=== PATIENT | female | born 2000 | race Caucasian/White ===

== ENCOUNTER 2022-07-27 17:35 | Emergency (ER) | payer OTHER ==
[~2022-07-27] VITALS: Ht 152.4 cm; Wt 52.8 kg
[2022-07-27 17:50] VITALS: BP 104/67
--- NOTE | 2022-07-27 18:04 | NUR ---
SWABS FOR FAINA, INFLUENZA A&B SENT TO LAB
--- NOTE | 2022-07-27 18:05 | NUR ---
James deal in [facility] - 07/27/22 at 1806 by [email or web address] CH B
--- NOTE | 2022-07-27 18:09 | NUR ---
PT AMB TO BED 3.
[2022-07-27] MEDS ORDERED: ALBUTEROL SULFATE/IPRATROPIU 3 ML SOL IH ONE (18:30)
[2022-07-27] MEDS ORDERED: predniSONE 20 MG TAB PO ONE (18:30)
--- NOTE | 2022-07-27 18:36 | NUR ---
22 y/o female bib self, c/o sob, difficulty breathing, yeager, sore throat, subjective fever, chills, body aches for 3 days, also reports consistent cough for 2 weeks. a&ox4, ambulates with steady gait. lung sounds wheezing bl. heart sounds regular and even. denies n/v/d. pmh: asthma nka med: denies
[2022-07-27] MEDS ORDERED: ALBU0.0912 IH (19:47)
[2022-07-27] MEDS ORDERED: PRED20TA5 PO (19:47)
--- NOTE | 2022-07-27 20:18 | NUR ---
pt cleared for discharge. left without paperwork.
== END 2022-07-27 20:18 | disposition home or self-care (01) ==
LOC: MED 17:43
DX: J11.1 Influenza due to unidentified influenza virus with other respiratory manifestations (principal); Z20.822 Contact with and (suspected) exposure to COVID-19; J45.901 Unspecified asthma with (acute) exacerbation; F17.210 Nicotine dependence, cigarettes, uncomplicated; F12.90 Cannabis use, unspecified, uncomplicated; Z79.899 Other long term (current) drug therapy
CPT/HCPCS: 71045; 87426; 87804; 94640; 99284; J7512; Q0092

== ENCOUNTER 2022-10-28 05:10 | Emergency (ER) | payer OTHER, MEDICAID ==
[~2022-10-28] VITALS: Ht 152.4 cm; Wt 54.4 kg
[~2022-10-28 05:10] MED LIST: ALBU0.0912 IH; PRED20TA5 PO
[2022-10-28 05:15] VITALS: BP 129/60
--- NOTE | 2022-10-28 05:17 | NUR ---
TO BED AMBULATORY
[2022-10-28] MEDS ORDERED: ACETAMINOPHEN EXTRA STRENGTH 500 MG TAB PO ONE (05:35)
[2022-10-28] MEDS ORDERED: ONDANSETRON 4 MG ODT PO ONE (05:40)
--- NOTE | 2022-10-28 05:42 | NUR ---
22YR OLD FEMALE BIB SELF C/O R RIB PAIN CELLULITIS TO R THIGH AND MOUTH. RIB PAIN X1DAY DENIES ANY INJURY. 8/10 SHARP PAIN LEVEL. DENIES CP OR SOB. PT STATES CELLULITIS X3DAYS. HAS HX OF CELLULITIS. SMALL OPEN SORES ON R THIGH AND UPPER LIP . HOB ELEVATED. BED AT LOWEST POSITION. NKDA ASTHMA
--- NOTE | 2022-10-28 05:52 | NUR ---
LABS COLLECTED AND SENT TO LAB
[2022-10-28 05:56] LABS: BASOPHILS # (AUTO) 0.1 K/uL (0.00-0.22); BASOPHILS % (AUTO) 1.1 % (0.0-2.0); EOSINOPHILS # (AUTO) 0.2 K/uL (0-0.4); EOSINOPHILS % (AUTO) 1.5 % (0.0-4.0); HEMATOCRIT 38.3 % (36-48); HEMOGLOBIN 12.9 g/dL (12.0-16.0); LYMPHOCYTES # (AUTO) 2.3 K/uL (2.5-16.5); LYMPHOCYTES % (AUTO) 21.2 % (20.5-51.1); MEAN CORPUSCULAR HEMOGLOBIN 29 pg (27-31); MEAN CORPUSCULAR HGB CONC 34 g/dL (33-37); MEAN CORPUSCULAR VOLUME 86.5 fL (80-94); MONOCYTES # (AUTO) 1.1 K/uL (0.8-1.0); MONOCYTES % (AUTO) 9.6 % (1.7-9.3); NEUTROPHILS # (AUTO) 7.4 K/uL (1.8-7.7); NEUTROPHILS % (AUTO) 66.6 % (42.2-75.2); PLATELET COUNT (AUTO) 421 K/uL (140-450); RED BLOOD CELL COUNT(AUTO) 4.42 MIL/uL (4.20-5.40); RED CELL DISTRIBUTION WIDTH 14.3 % (11.6-13.7); WHITE BLOOD COUNT (AUTO) 11.1 K/uL (4.5-11.0)
[2022-10-28 06:22] LABS: ALBUMIN 3.9 g/dL (3.4-5.0); ANION GAP 12.8 (8-16); CARBON DIOXIDE 27.1 mmol/L (21-32); CREATININE 0.9 mg/dL (0.6-1.3); POTASSIUM 3.9 mmol/L (3.5-5.1); TOTAL BILIRUBIN 0.8 mg/dL (0.0-1.0)
--- NOTE | 2022-10-28 07:30 | NUR ---
REPORT RECEIVED FROM DALIA TRAN. ASSUMED CARE AT THIS TIME
--- NOTE | 2022-10-28 08:09 | NUR ---
MADE AWARE OF PT UA/PREG
[2022-10-28 08:15] LABS: APPEARANCE,URINE CLEAR (CLEAR); BILIRUBIN,URINE NEGATIVE (NEGATIVE); BLOOD, URINE NEGATIVE (NEGATIVE); COLOR,URINE YELLOW (YELLOW); LEUKOCYTE ESTERASE ,URINE SMALL (NEGATIVE); NITRITE, URINE NEGATIVE (NEGATIVE); PH,URINE 6.5 (5.0-9.0); UGLUCOSE NEGATIVE (NEGATIVE)
--- NOTE | 2022-10-28 08:22 | NUR ---
US AT BEDSIDE
[2022-10-28 08:42] LABS: RBC,URINE 0-5 /HPF (0-5)
--- NOTE | 2022-10-28 11:49 | NUR ---
CALL RECEIVED FROM [facility]. UPDATED ON PT STATUS JOHNNY VICTORIA [phone]
[2022-10-28] MEDS ORDERED: ACET-10509 PO (13:59)
[2022-10-28] MEDS ORDERED: CEPH-588 PO (13:59)
[2022-10-28 14:18] VITALS: BP 112/63
--- NOTE | 2022-10-28 14:18 | NUR ---
Patient discharged with v/s stable. Written and verbal after care instructions FOR UTI AND FIRST TRIMESTER PREG given and explained. Patient alert, oriented and verbalized understanding of instructions. Ambulatory with steady gait. All questions addressed prior to discharge. ID band removed. Patient advised to follow up with PMD. Rx of KEFLEX AND TYLENOL XTRA STRENGTH given. Opportunity to ask questions provided and answered.
--- NOTE | 2022-10-28 14:19 | NUR ---
The patient's care was reviewed and supervised by Lupe Galvez RN.
== END 2022-10-28 14:18 | disposition home or self-care (01) ==
LOC: MED 05:10
DX: O23.41 Unspecified infection of urinary tract in pregnancy, first trimester (principal); N39.0 Urinary tract infection, site not specified; R07.89 Other chest pain; J45.909 Unspecified asthma, uncomplicated; Z3A.01 Less than 8 weeks gestation of pregnancy
CPT/HCPCS: 36415; 71045; 76705; 76817; 80053; 81001; 81025; 83690; 84702; 85025; 85379; 87086; 99285; Q0092; Q0162

== ENCOUNTER 2022-12-03 20:53 | Emergency (ER) | payer OTHER, MEDICAID ==
[~2022-12-03] VITALS: Ht 165.1 cm; Wt 62.6 kg
[~2022-12-03 20:53] MED LIST changes: +ACET-10509 PO; +CEPH-588 PO
[2022-12-03 21:10] VITALS: BP 106/50
--- NOTE | 2022-12-03 21:19 | NUR ---
Patient taken to bed 12.
--- NOTE | 2022-12-03 21:21 | NUR ---
Dr. Santos examining patient.
--- NOTE | 2022-12-03 21:38 | NUR ---
Ultrasound at bedside.
[2022-12-03 21:46] LABS: BASOPHILS # (AUTO) 0.1 K/uL (0.00-0.22); BASOPHILS % (AUTO) 0.6 % (0.0-2.0); EOSINOPHILS # (AUTO) 0.3 K/uL (0-0.4); EOSINOPHILS % (AUTO) 2.6 % (0.0-4.0); HEMOGLOBIN 11.5 g/dL (12.0-16.0); LYMPHOCYTES # (AUTO) 3.2 K/uL (2.5-16.5); LYMPHOCYTES % (AUTO) 31.5 % (20.5-51.1); MEAN CORPUSCULAR HEMOGLOBIN 29 pg (27-31); MEAN CORPUSCULAR HGB CONC 33 g/dL (33-37); MEAN CORPUSCULAR VOLUME 88.1 fL (80-94); MONOCYTES # (AUTO) 1.1 K/uL (0.8-1.0); MONOCYTES % (AUTO) 10.5 % (1.7-9.3); NEUTROPHILS # (AUTO) 5.6 K/uL (1.8-7.7); NEUTROPHILS % (AUTO) 54.8 % (42.2-75.2); PLATELET COUNT (AUTO) 312 K/uL (140-450); RED BLOOD CELL COUNT(AUTO) 3.97 MIL/uL (4.20-5.40); RED CELL DISTRIBUTION WIDTH 14.9 % (11.6-13.7); WHITE BLOOD COUNT (AUTO) 10.2 K/uL (4.5-11.0)
--- NOTE | 2022-12-03 21:48 | NUR ---
Patient received on bed lying comfortably and awake. Alert and oriented x4. No acute distress. Complained of headache with pain scale of 3/10. Respirations even and unlabored.
[2022-12-03 21:55] LABS: APPEARANCE,URINE CLEAR (CLEAR); BILIRUBIN,URINE NEGATIVE (NEGATIVE); BLOOD, URINE NEGATIVE (NEGATIVE); COLOR,URINE YELLOW (YELLOW); LEUKOCYTE ESTERASE ,URINE NEGATIVE (NEGATIVE); NITRITE, URINE NEGATIVE (NEGATIVE); UGLUCOSE NEGATIVE (NEGATIVE)
[2022-12-03 22:12] LABS: ALBUMIN 3.4 g/dL (3.4-5.0); ANION GAP 11.9 (8-16); CARBON DIOXIDE 26.3 mmol/L (21-32); CREATININE 0.6 mg/dL (0.6-1.3); POTASSIUM 4.2 mmol/L (3.5-5.1); TOTAL BILIRUBIN 0.2 mg/dL (0.0-1.0)
[2022-12-03 23:07] LABS: RBC,URINE 0-5 /HPF (0-5); WBC,URINE 0-5 /HPF (0-5)
[2022-12-03 23:10] VITALS: BP 106/50
--- NOTE | 2022-12-03 23:12 | NUR ---
DC BY . Patient discharged with v/s stable. Written and verbal after care instructions given and explained. Patient verbalized understanding. Ambulatory with steady gait. All questions addressed prior to discharge. Advised to follow up with PMD.
== END 2022-12-03 23:12 | disposition home or self-care (01) ==
LOC: MED 20:53
DX: O26.891 Other specified pregnancy related conditions, first trimester (principal); Z3A.09 9 weeks gestation of pregnancy; Z79.899 Other long term (current) drug therapy
CPT/HCPCS: 36415; 76801; 80053; 81001; 81025; 84702; 85025; 86900; 86901; 99284; Q0092

== ENCOUNTER 2023-06-06 09:13 | Emergency (ER) | payer OTHER, MEDICAID ==
[~2023-06-06] VITALS: Ht 165.1 cm; Wt 59.1 kg
[2023-06-06 09:20] VITALS: BP 130/78; PULSE 107; RESP 20; TEMP 97.9; O2SAT 98
[2023-06-06 09:45] VITALS: O2SAT 98
[2023-06-06] MEDS ORDERED: NITR100C7 PO (09:47)
[2023-06-06] MEDS ORDERED: PHEN-1877 PO (09:47)
[2023-06-06 10:00] VITALS: BP 128/78; PULSE 80; RESP 20; TEMP 97.9; O2SAT 98
[2023-06-06 10:17] LABS: BILIRUBIN,URINE 1+ (NEGATIVE); BLOOD, URINE 2+ (NEGATIVE); COLOR,URINE YELLOW (YELLOW); LEUKOCYTE ESTERASE ,URINE 3+ (NEGATIVE); NITRITE, URINE NEGATIVE (NEGATIVE); PROTEIN,URINE 1+ (NEGATIVE); UGLUCOSE NEGATIVE (NEGATIVE); UROBILINOGEN,URINE 0.2 EU/dL (0.2 - 1)
[2023-06-06 10:18] LABS: APPEARANCE,URINE HAZY (CLEAR)
[2023-06-06 10:23] LABS: ICTOTEST NEGATIVE (NEGATIVE)
[2023-06-06 10:24] LABS: BACTERIA,URINE FEW /HPF (None Seen); SQUAMOUS EPITHELIAL CELL,UR 4-10 (MOD) /LPF (0-3 (FEW)); WBC,URINE TOO MANY TO COUNT /HPF (0-5)
== END 2023-06-06 10:00 | disposition home or self-care (01) ==
LOC: MED 09:13
DX: N39.0 Urinary tract infection, site not specified (principal); F17.200 Nicotine dependence, unspecified, uncomplicated; J45.909 Unspecified asthma, uncomplicated; Z71.6 Tobacco abuse counseling; Z79.899 Other long term (current) drug therapy
CPT/HCPCS: 81001; 81025; 87086; 87491; 99283

== ENCOUNTER 2023-06-16 02:05 | Emergency (ER) | payer OTHER, MEDICAID ==
[~2023-06-16] VITALS: Ht 165.1 cm; Wt 54.4 kg
[~2023-06-16 02:05] MED LIST changes: +NITR100C7 PO; +PHEN-1877 PO
[2023-06-16 02:08] VITALS: BP 122/77; PULSE 97; RESP 20; TEMP 97.4; O2SAT 96
[2023-06-16 02:17] VITALS: O2SAT 98
[2023-06-16 02:26] LABS: BASOPHILS # (AUTO) 0.1 K/uL (0.00-0.22); BASOPHILS % (AUTO) 0.5 % (0.0-2.0); EOSINOPHILS # (AUTO) 0.1 K/uL (0-0.4); EOSINOPHILS % (AUTO) 0.7 % (0.0-4.0); HEMATOCRIT 41.9 % (36-48); HEMOGLOBIN 13.7 g/dL (12.0-16.0); LYMPHOCYTES # (AUTO) 3.4 K/uL (2.5-16.5); LYMPHOCYTES % (AUTO) 27.8 % (20.5-51.1); MEAN CORPUSCULAR HEMOGLOBIN 29 pg (27-31); MEAN CORPUSCULAR HGB CONC 33 g/dL (33-37); MEAN CORPUSCULAR VOLUME 88.4 fL (80-94); MONOCYTES # (AUTO) 0.8 K/uL (0.8-1.0); MONOCYTES % (AUTO) 6.8 % (1.7-9.3); NEUTROPHILS # (AUTO) 7.9 K/uL (1.8-7.7); NEUTROPHILS % (AUTO) 64.2 % (42.2-75.2); PLATELET COUNT (AUTO) 55 K/uL (140-450); RED BLOOD CELL COUNT(AUTO) 4.74 MIL/uL (4.20-5.40); RED CELL DISTRIBUTION WIDTH 15.6 % (11.6-13.7); WHITE BLOOD COUNT (AUTO) 12.4 K/uL (4.5-11.0)
[2023-06-16] MEDS ORDERED: ONDANSETRON 4 MG/2 ML VIAL IVP ONE (02:30)
[2023-06-16 02:45] LABS: ALBUMIN 4.2 g/dL (3.4-5.0); ANION GAP 14.9 (8-16); CALCIUM 9.2 mg/dL (8.5-10.1); CARBON DIOXIDE 26.1 mmol/L (21-32); CREATININE 0.8 mg/dL (0.6-1.3); TOTAL BILIRUBIN 0.8 mg/dL (0.0-1.0); TOTAL PROTEIN, SERUM 7.6 g/dL (6.4-8.2)
[2023-06-16 03:08] LABS: ACETAMINOPHEN < 0.5 ug/ml (10-30); ALCOHOL, BLOOD < 3 mg/dL (<10); SALICYLATE < 2.8 mg/dL (2.8-20.0)
[2023-06-16 05:06] VITALS: O2SAT 96
[2023-06-16 05:07] VITALS: BP 94/55; PULSE 64; RESP 13
[2023-06-16] MEDS ORDERED: METOCLOPRAMIDE 10 MG/2 ML INJ VIAL IVP ONE (05:35)
[2023-06-16] MEDS ORDERED: KETOROLAC 30 MG/ML VIAL IVP ONE (05:35)
[2023-06-16] MEDS ORDERED: NALO4SPR NS (06:01)
[2023-06-16 06:45] LABS: AMPHETAMINE, URINE POSITIVE ng/ml (NEG <=1000); BARBITURATE, URINE NEGATIVE ng/ml (NEG <=200); BENZODIAZEPINE, URINE POSITIVE ng/mL (NEG <=200); CANNABINOID, URINE POSITIVE ng/mL (NEG <=50); COCAINE, URINE NEGATIVE ng/mL (NEG <=300); OPIATE, URINE NEGATIVE ng/mL (NEG <=2000); PHENCYCLIDINE SCREEN,URINE NEGATIVE ng/mL (NEG <=25)
[2023-06-16 07:22] VITALS: O2SAT 96
== END 2023-06-16 08:44 | disposition home or self-care (01) ==
LOC: MED 02:05
DX: T40.414A Poisoning by fentanyl or fentanyl analogs, undetermined, initial encounter (principal); E86.0 Dehydration; R51.9 Headache, unspecified; J45.909 Unspecified asthma, uncomplicated; Z79.899 Other long term (current) drug therapy; Z79.2 Long term (current) use of antibiotics; Y92.89 Other specified places as the place of occurrence of the external cause
CPT/HCPCS: 36415; 80053; 80305; 81025; 85025; 93005; 96374; 96375; 99284; G0480; G0482; J1885; J2405; J2765

== ENCOUNTER 2023-08-28 15:31 | Emergency (ER) | payer OTHER, MEDICAID ==
[~2023-08-28] VITALS: Ht 162.6 cm; Wt 72.6 kg
[~2023-08-28 15:31] MED LIST changes: +NALO4SPR NS
[2023-08-28 15:37] VITALS: BP 98/65; PULSE 95; RESP 18; TEMP 97; O2SAT 98
[2023-08-28] MEDS ORDERED: CETI-264 PO (15:41)
[2023-08-28] MEDS ORDERED: IBUP-2213 PO (15:41)
[2023-08-28] MEDS ORDERED: ALBU0.0912 IH (15:41)
[2023-08-28 17:17] LABS: FLU A ANTIGEN negative (NEGATIVE); FLU B ANTIGEN NEGATIVE (NEGATIVE)
== END 2023-08-28 16:06 | disposition home or self-care (01) ==
LOC: MED 15:31
DX: J06.9 Acute upper respiratory infection, unspecified (principal); J45.909 Unspecified asthma, uncomplicated; Z20.822 Contact with and (suspected) exposure to COVID-19; Z79.899 Other long term (current) drug therapy; Z79.1 Long term (current) use of non-steroidal anti-inflammatories (NSAID); Z79.2 Long term (current) use of antibiotics
CPT/HCPCS: 99283

== ENCOUNTER 2023-08-28 19:44 | Emergency (ER) | payer OTHER, MEDICAID ==
[~2023-08-28] VITALS: Ht 152.4 cm; Wt 54.4 kg
[~2023-08-28 19:44] MED LIST changes: +CETI-264 PO; +IBUP-2213 PO
[2023-08-28] MEDS ORDERED: ACETAMINOPHEN 325 MG TAB PO ONE (20:05)
[2023-08-28 20:48] VITALS: BP 124/74; PULSE 83; RESP 16; TEMP 97; O2SAT 95
[2023-08-28] MEDS ORDERED: ONDANSETRON 4 MG ODT PO ONE (21:05)
[2023-08-28] MEDS ORDERED: ACETAMINOPHEN 325 MG TAB ONE (21:32)
== END 2023-08-28 22:15 ==
LOC: MED 19:44
DX: S00.01XA Abrasion of scalp, initial encounter (principal); R11.0 Nausea; J45.909 Unspecified asthma, uncomplicated; Z79.899 Other long term (current) drug therapy; Z79.2 Long term (current) use of antibiotics; Z79.1 Long term (current) use of non-steroidal anti-inflammatories (NSAID); W07.XXXA Fall from chair, initial encounter; Y93.89 Activity, other specified; Y92.89 Other specified places as the place of occurrence of the external cause; Y99.8 Other external cause status
CPT/HCPCS: 70450; 81025; 90471; 90715; 99285; Q0162

== ENCOUNTER 2023-10-15 20:09 | Emergency (ER) | payer BC, MEDICAID ==
[~2023-10-15] VITALS: Ht 157.5 cm; Wt 72.1 kg
[2023-10-15 20:19] VITALS: BP 114/68; PULSE 107; RESP 18; TEMP 97.4; O2SAT 99
[2023-10-15 20:48] LABS: BASOPHILS # (AUTO) 0.1 K/uL (0.00-0.22); BASOPHILS % (AUTO) 0.4 % (0.0-2.0); EOSINOPHILS % (AUTO) 0.3 % (0.0-4.0); HEMATOCRIT 42.9 % (36-48); HEMOGLOBIN 14.7 g/dL (12.0-16.0); LYMPHOCYTES # (AUTO) 2.2 K/uL (2.5-16.5); LYMPHOCYTES % (AUTO) 14.2 % (20.5-51.1); MEAN CORPUSCULAR HEMOGLOBIN 31 pg (27-31); MEAN CORPUSCULAR HGB CONC 34 g/dL (33-37); MEAN CORPUSCULAR VOLUME 89.6 fL (80-94); MONOCYTES # (AUTO) 0.9 K/uL (0.8-1.0); MONOCYTES % (AUTO) 5.9 % (1.7-9.3); NEUTROPHILS # (AUTO) 12.1 K/uL (1.8-7.7); NEUTROPHILS % (AUTO) 79.2 % (42.2-75.2); PLATELET COUNT (AUTO) 381 K/uL (140-450); RED BLOOD CELL COUNT(AUTO) 4.79 MIL/uL (4.20-5.40); RED CELL DISTRIBUTION WIDTH 13.7 % (11.6-13.7); WHITE BLOOD COUNT (AUTO) 15.3 K/uL (4.8-10.8)
[2023-10-15] MEDS ORDERED: ONDANSETRON 4 MG/2 ML VIAL IVP ONE (20:50)
[2023-10-15] MEDS ORDERED: NACL 0.9% 1,000 ML IV ONE (20:50)
[2023-10-15 20:51] LABS: APPEARANCE,URINE CLEAR (CLEAR); BILIRUBIN,URINE 1+ (NEGATIVE); BLOOD, URINE NEGATIVE (NEGATIVE); COLOR,URINE YELLOW (YELLOW); LEUKOCYTE ESTERASE ,URINE NEGATIVE (NEGATIVE); NITRITE, URINE NEGATIVE (NEGATIVE); PROTEIN,URINE TRACE (NEGATIVE); UGLUCOSE NEGATIVE (NEGATIVE); UROBILINOGEN,URINE 0.2 EU/dL (0.2 - 1)
[2023-10-15 20:57] LABS: ICTOTEST NEGATIVE (NEGATIVE)
[2023-10-15 20:58] LABS: BACTERIA,URINE FEW /HPF (None Seen); MUCUS,URINE 1+ /LPF (None Seen); RBC,URINE 0-5 /HPF (0-5); SQUAMOUS EPITHELIAL CELL,UR 50-80 /LPF (0-3 (FEW)); TRICHOMONAS,URINE None Seen /HPF (None Seen); WBC,URINE 0-5 /HPF (0-5); YEAST,URINE None Seen /HPF (None Seen)
[2023-10-15 21:05] LABS: ALBUMIN 3.9 g/dL (3.4-5.0); ANION GAP 13.1 (8-16); CALCIUM 9.1 mg/dL (8.5-10.1); CARBON DIOXIDE 25.6 mmol/L (21-32); CREATININE 0.7 mg/dL (0.6-1.3); POTASSIUM 3.7 mmol/L (3.5-5.1); TOTAL PROTEIN, SERUM 8.8 g/dL (6.4-8.2)
[2023-10-15 22:40] VITALS: BP 127/60; PULSE 63; RESP 15; O2SAT 100
[2023-10-15] MEDS ORDERED: ONDA-188 SL (23:53)
== END 2023-10-15 23:59 | disposition home or self-care (01) ==
LOC: MED 20:09
DX: O26.891 Other specified pregnancy related conditions, first trimester (principal); R11.2 Nausea with vomiting, unspecified; Z3A.01 Less than 8 weeks gestation of pregnancy; Z79.899 Other long term (current) drug therapy
CPT/HCPCS: 36415; 76817; 80053; 81001; 81025; 83690; 84702; 85025; 96361; 96374; 99285; J2405; J7030; Q0092

== ENCOUNTER 2023-10-19 10:02 | Emergency (ER) | payer BC, OTHER ==
[~2023-10-19] VITALS: Ht 165.1 cm; Wt 54.4 kg
[~2023-10-19 10:02] MED LIST changes: +ONDA-188 SL
[2023-10-19 10:12] VITALS: BP 105/66; PULSE 74; RESP 18; TEMP 98.2; O2SAT 100
[2023-10-19] MEDS ORDERED: NACL 0.9% 1,000 ML IV ONE (10:25)
[2023-10-19] MEDS ORDERED: ONDANSETRON 4 MG/2 ML VIAL IVP ONE (10:25)
[2023-10-19] MEDS ORDERED: ONDANSETRON 4 MG/2 ML VIAL ONE (10:29)
[2023-10-19 11:20] LABS: BASOPHILS # (AUTO) 0.1 K/uL (0.00-0.22); BASOPHILS % (AUTO) 0.4 % (0.0-2.0); EOSINOPHILS # (AUTO) 0.1 K/uL (0-0.4); EOSINOPHILS % (AUTO) 0.5 % (0.0-4.0); HEMATOCRIT 39.6 % (36-48); HEMOGLOBIN 13.4 g/dL (12.0-16.0); LYMPHOCYTES # (AUTO) 2.6 K/uL (2.5-16.5); LYMPHOCYTES % (AUTO) 17.3 % (20.5-51.1); MEAN CORPUSCULAR HEMOGLOBIN 31 pg (27-31); MEAN CORPUSCULAR HGB CONC 34 g/dL (33-37); MEAN CORPUSCULAR VOLUME 90.7 fL (80-94); MONOCYTES # (AUTO) 0.9 K/uL (0.8-1.0); MONOCYTES % (AUTO) 5.7 % (1.7-9.3); NEUTROPHILS # (AUTO) 11.5 K/uL (1.8-7.7); NEUTROPHILS % (AUTO) 76.1 % (42.2-75.2); PLATELET COUNT (AUTO) 318 K/uL (140-450); RED BLOOD CELL COUNT(AUTO) 4.36 MIL/uL (4.20-5.40); WHITE BLOOD COUNT (AUTO) 15.1 K/uL (4.8-10.8)
[2023-10-19 11:34] LABS: ANION GAP 11.5 (8-16); CALCIUM 8.6 mg/dL (8.5-10.1); CARBON DIOXIDE 27.3 mmol/L (21-32); CREATININE 0.6 mg/dL (0.6-1.3); POTASSIUM 3.8 mmol/L (3.5-5.1)
[2023-10-19 11:41] LABS: ALBUMIN 3.4 g/dL (3.4-5.0); BILIRUBIN,DIRECT 0.1 mg/dL (0.0-0.3); TOTAL BILIRUBIN 0.6 mg/dL (0.0-1.0); TOTAL PROTEIN, SERUM 7.6 g/dL (6.4-8.2)
[2023-10-19] MEDS ORDERED: DOXY1TCP PO (12:37)
[2023-10-19 12:50] VITALS: BP 105/66; PULSE 74; RESP 18; TEMP 98.2; O2SAT 100
== END 2023-10-19 12:50 | disposition home or self-care (01) ==
LOC: MED 10:02
DX: O21.8 Other vomiting complicating pregnancy (principal); O26.891 Other specified pregnancy related conditions, first trimester; R10.13 Epigastric pain; O99.511 Diseases of the respiratory system complicating pregnancy, first trimester; J45.909 Unspecified asthma, uncomplicated; Z3A.01 Less than 8 weeks gestation of pregnancy; Z79.899 Other long term (current) drug therapy; Z79.1 Long term (current) use of non-steroidal anti-inflammatories (NSAID)
CPT/HCPCS: 36415; 80048; 80076; 81002; 81025; 83690; 85025; 96361; 96374; 99283; J2405; J7030

== ENCOUNTER 2023-11-04 22:44 | Emergency (ER) | payer BC, OTHER ==
[~2023-11-04] VITALS: Ht 152.4 cm; Wt 59.0 kg
[~2023-11-04 22:44] MED LIST changes: +DOXY1TCP PO
[2023-11-04 23:46] VITALS: BP 119/73; PULSE 84; RESP 20; TEMP 96.5; O2SAT 99
[2023-11-04] MEDS ORDERED: NACL 0.9% 1,000 ML IV ONE (23:50)
[2023-11-04] MEDS ORDERED: ONDANSETRON 4 MG/2 ML VIAL IVP ONE (23:50)
== END 2023-11-05 00:12 | disposition left against medical advice (07) ==
LOC: MED 22:44
DX: O21.9 Vomiting of pregnancy, unspecified (principal); Z3A.08 8 weeks gestation of pregnancy; Z53.21 Procedure and treatment not carried out due to patient leaving prior to being seen by health care provider
CPT/HCPCS: 99281

== ENCOUNTER 2024-03-27 19:31 | Emergency (ER) | payer BC, OTHER ==
[~2024-03-27] VITALS: Ht 152.4 cm; Wt 76.7 kg
[2024-03-27 19:33] VITALS: BP 110/56; PULSE 129; RESP 20; TEMP 99; O2SAT 99
[2024-03-27] MEDS: NACL 0.9% 1,000 ML IV SCH ×2 (20:28→23:22)
[2024-03-27] MEDS: ONDANSETRON 4 MG/2 ML VIAL IVP ONE (20:43)
[2024-03-27 20:48] LABS: BASOPHILS % (AUTO) 0.2 % (0.0-2.0); EOSINOPHILS % (AUTO) 0.3 % (0.0-4.0); HEMATOCRIT 37.3 % (36-48); HEMOGLOBIN 12.2 g/dL (12.0-16.0); LYMPHOCYTES # (AUTO) 0.4 K/uL (2.5-16.5); LYMPHOCYTES % (AUTO) 2.7 % (20.5-51.1); MEAN CORPUSCULAR HEMOGLOBIN 31 pg (27-31); MEAN CORPUSCULAR HGB CONC 33 g/dL (33-37); MEAN CORPUSCULAR VOLUME 93.4 fL (80-94); MONOCYTES # (AUTO) 1.5 K/uL (0.8-1.0); NEUTROPHILS # (AUTO) 14.2 K/uL (1.8-7.7); NEUTROPHILS % (AUTO) 87.8 % (42.2-75.2); PLATELET COUNT (AUTO) 232 K/uL (140-450); RED BLOOD CELL COUNT(AUTO) 3.99 MIL/uL (4.20-5.40); RED CELL DISTRIBUTION WIDTH 17.1 % (11.6-13.7); WHITE BLOOD COUNT (AUTO) 16.2 K/uL (4.8-10.8)
[2024-03-27 21:06] LABS: ALBUMIN 2.7 g/dL (3.4-5.0); ANION GAP 17.6 (8-16); CREATININE 0.5 mg/dL (0.6-1.3); POTASSIUM 3.6 mmol/L (3.5-5.1); TOTAL BILIRUBIN 0.9 mg/dL (0.0-1.0); TOTAL PROTEIN, SERUM 6.8 g/dL (6.4-8.2)
[2024-03-27] MEDS: ACETAMINOPHEN EXTRA STRENGTH 500 MG TAB PO ONE (21:06)
[2024-03-27 21:46] LABS: APPEARANCE,URINE CLEAR (CLEAR); BILIRUBIN,URINE NEGATIVE (NEGATIVE); BLOOD, URINE NEGATIVE (NEGATIVE); COLOR,URINE YELLOW (YELLOW); LEUKOCYTE ESTERASE ,URINE NEGATIVE (NEGATIVE); NITRITE, URINE NEGATIVE (NEGATIVE); PROTEIN,URINE 1+ (NEGATIVE); UGLUCOSE NEGATIVE (NEGATIVE); UROBILINOGEN,URINE 0.2 EU/dL (0.2 - 1)
[2024-03-27 22:12] VITALS: BP 110/56; PULSE 129; RESP 20; TEMP 99; O2SAT 99
[2024-03-27] MEDS ORDERED: DOXY1TCP PO (23:54)
[2024-03-27] MEDS ORDERED: NIRM1TAB9 PO (23:54)
[2024-03-27] MEDS ORDERED: ACET-10509 PO (23:54)
== END 2024-03-28 00:19 | disposition home or self-care (01) ==
LOC: MED 19:31
DX: O98.513 Other viral diseases complicating pregnancy, third trimester (principal); U07.1 COVID-19; J06.9 Acute upper respiratory infection, unspecified; B97.89 Other viral agents as the cause of diseases classified elsewhere; J45.909 Unspecified asthma, uncomplicated; Z3A.29 29 weeks gestation of pregnancy; Z79.1 Long term (current) use of non-steroidal anti-inflammatories (NSAID); Z79.2 Long term (current) use of antibiotics; Z79.899 Other long term (current) drug therapy
CPT/HCPCS: 36415; 76705; 80053; 81003; 83690; 85025; 96361; 96374; 99285; J2405; J7030; Q0092

== ENCOUNTER 2024-03-28 17:05 | Emergency (ER) | payer OTHER ==
[~2024-03-28] VITALS: Ht 152.4 cm; Wt 76.3 kg
[~2024-03-28 17:05] MED LIST changes: +NIRM1TAB9 PO
[2024-03-28 17:18] VITALS: BP 109/58; PULSE 109; RESP 18; TEMP 97.9; O2SAT 98
[2024-03-28 18:09] LABS: BASOPHILS % (AUTO) 0.5 % (0.0-2.0); EOSINOPHILS % (AUTO) 0.3 % (0.0-4.0); HEMATOCRIT 33.8 % (36-48); HEMOGLOBIN 11.3 g/dL (12.0-16.0); LYMPHOCYTES # (AUTO) 1.1 K/uL (2.5-16.5); LYMPHOCYTES % (AUTO) 11.9 % (20.5-51.1); MEAN CORPUSCULAR HEMOGLOBIN 31 pg (27-31); MEAN CORPUSCULAR HGB CONC 34 g/dL (33-37); MEAN CORPUSCULAR VOLUME 92.7 fL (80-94); MONOCYTES # (AUTO) 1.6 K/uL (0.8-1.0); MONOCYTES % (AUTO) 17.2 % (1.7-9.3); NEUTROPHILS # (AUTO) 6.4 K/uL (1.8-7.7); NEUTROPHILS % (AUTO) 70.1 % (42.2-75.2); PLATELET COUNT (AUTO) 234 K/uL (140-450); RED BLOOD CELL COUNT(AUTO) 3.64 MIL/uL (4.20-5.40); RED CELL DISTRIBUTION WIDTH 17.3 % (11.6-13.7); WHITE BLOOD COUNT (AUTO) 9.2 K/uL (4.8-10.8)
[2024-03-28 18:22] LABS: ANION GAP 15.1 (8-16); CALCIUM 8.2 mg/dL (8.5-10.1); CARBON DIOXIDE 20.4 mmol/L (21-32); CREATININE 0.5 mg/dL (0.6-1.3); POTASSIUM 3.5 mmol/L (3.5-5.1)
[2024-03-28 18:33] LABS: ALBUMIN 2.4 g/dL (3.4-5.0); BILIRUBIN,DIRECT 0.1 mg/dL (0.0-0.3); TOTAL BILIRUBIN 0.3 mg/dL (0.0-1.0); TOTAL PROTEIN, SERUM 6.1 g/dL (6.4-8.2)
[2024-03-28 19:09] VITALS: BP 110/62; PULSE 99; RESP 18; TEMP 97.9; O2SAT 99
== END 2024-03-28 19:09 | disposition home or self-care (01) ==
LOC: MED 17:05
DX: O26.893 Other specified pregnancy related conditions, third trimester (principal); R74.01 Elevation of levels of liver transaminase levels; O99.513 Diseases of the respiratory system complicating pregnancy, third trimester; R05.9 Cough, unspecified; R09.89 Other specified symptoms and signs involving the circulatory and respiratory systems; J45.909 Unspecified asthma, uncomplicated; Z3A.29 29 weeks gestation of pregnancy; Z79.1 Long term (current) use of non-steroidal anti-inflammatories (NSAID); Z79.2 Long term (current) use of antibiotics; Z79.899 Other long term (current) drug therapy
CPT/HCPCS: 36415; 80048; 80076; 83690; 85025; 99283

== ENCOUNTER 2024-04-19 03:26 | Observation (INO) | payer OTHER ==
[~2024-04-19] VITALS: Ht 152.4 cm; Wt 78.5 kg
[2024-04-19 04:00] VITALS: BP 117/68; PULSE 86; RESP 16; TEMP 98.1
[2024-04-19 05:35] VITALS: BP 117/73; PULSE 90; RESP 16; TEMP 98.4
== END 2024-04-19 05:55 | disposition home or self-care (01) ==
LOC: MLD 03:26
PROVIDERS: ADMIT Obstetrics & Gynecology; ATTEND Obstetrics & Gynecology
DX: O36.8130 Decreased fetal movements, third trimester, not applicable or unspecified (principal); O26.643 Intrahepatic cholestasis of pregnancy, third trimester; K83.1 Obstruction of bile duct; O24.419 Gestational diabetes mellitus in pregnancy, unspecified control; O26.893 Other specified pregnancy related conditions, third trimester; R10.32 Left lower quadrant pain; Z3A.33 33 weeks gestation of pregnancy
CPT/HCPCS: G0378; G0379; Q0163

== ENCOUNTER 2024-05-04 19:40 | Observation (INO) | payer OTHER ==
[~2024-05-04] VITALS: Ht 152.4 cm; Wt 78.5 kg
[2024-05-04 19:51] VITALS: BP 119/63; PULSE 95; RESP 18; TEMP 97.6
[2024-05-04] MEDS: LACTATED RINGERS 1,000 ML IV SCH (20:48)
[2024-05-04] MEDS: TERBUTALINE 1 MG/ML VIAL SUBQ SCH (20:59)
== END 2024-05-04 22:45 | disposition home or self-care (01) ==
LOC: MLD 19:40
PROVIDERS: ADMIT Obstetrics & Gynecology; ATTEND Obstetrics & Gynecology
DX: O26.893 Other specified pregnancy related conditions, third trimester (principal); R10.9 Unspecified abdominal pain; O24.419 Gestational diabetes mellitus in pregnancy, unspecified control; Z3A.35 35 weeks gestation of pregnancy; Z87.891 Personal history of nicotine dependence
CPT/HCPCS: 96360; 96361; 96372; G0378; G0379; J3105; J7120